=== PATIENT | female | born 1990 | race American Indian/Alaskan Native ===

== ENCOUNTER 2017-12-20 14:07 | Outpatient (CLI) | payer OTHER ==
--- NOTE | 2017-12-20 16:42 | Ultrasound Report ---
FINAL REPORT EXAM: US TRANSVAGINAL HISTORY: Pelvic and perineal pain TECHNIQUE: Ultrasound evaluation of the pelvis using TRANSVAGINAL technique PRIORS: Transabdominal pelvic ultrasound 12/20/2017 FINDINGS: Uterus size and shape are normal, 6.5 x 3.3 x 5.1 cm. No evidence of uterine mass. The endometrium is homogenous. Endometrial thickness is 16mm. There is no cul-de-sac free fluid. Normal ovarian size. No evidence of solid ovarian mass. Ovarian/adnexal blood flow is present. The adnexa are normal. Right ovary: 3.1 x 2.0 x 3.1 cm Left ovary: 2.1 x 2.4 x 2.8 cm IMPRESSION: No sonographic evidence of acute pelvic pathology
--- NOTE | 2017-12-20 16:43 | Ultrasound Report ---
FINAL REPORT EXAM: US PELVIC COMPLETE HISTORY: Pelvic and perineal pain TECHNIQUE: Ultrasound evaluation of the pelvis using TRANSABDOMINAL technique PRIORS: Endovaginal pelvic ultrasound 12/20/2017 FINDINGS: Uterus size and shape are normal, 6.5 x 3.3 x 5.1 cm. No evidence of uterine mass. The endometrium is homogenous. Endometrial thickness is 16mm. There is no cul-de-sac free fluid. Normal ovarian size. No evidence of solid ovarian mass. Ovarian/adnexal blood flow is present. The adnexa are normal. Right ovary: 3.1 x 2.0 x 3.1 cm Left ovary: 2.1 x 2.4 x 2.8 cm IMPRESSION: No sonographic evidence of acute pelvic pathology
== END 2017-12-20 14:08 | disposition home or self-care (01) ==
LOC: US 14:07
PROVIDERS: ATTEND Family Medicine
DX: R10.2 Pelvic and perineal pain (principal)
CPT/HCPCS: 76830; 76856